=== PATIENT | male | born 1955 | race American Indian/Alaskan Native ===

== ENCOUNTER 2019-09-08 13:13 | Emergency (ER) | payer MEDICARE ==
[2019-09-08 13:24] VITALS: BP 121/73
[2019-09-08 16:04] LABS: Basophils % (Auto) 0.8 % (0.0-1.8); Eosinophils # (Auto) 0.2 K/mm3 (0.0-0.4); Eosinophils % (Auto) 3.2 % (0.0-4.3); Hematocrit 45.7 % (35.5-45.6); Hemoglobin 15.1 gm/dl (11.8-15.2); Lymphocytes # (Auto) 1.9 K/mm3 (1.2-5.4); Lymphocytes % (Auto) 32.8 % (13.4-35.0); Mean Corpuscular HGB Conc 33 % (32-34); Mean Corpuscular Volume 80 fl (84-94); Monocytes # (Auto) 0.5 K/mm3 (0.0-0.8); Platelet Count 289 K/mm3 (140-440); Red Blood Count 5.71 M/mm3 (3.65-5.03); Red Cell Distribution Width 14.3 % (13.2-15.2)
[2019-09-08] MEDS ORDERED: ALBUTEROL 2.5 MG/3 ML NEBU IH ONE (16:16)
[2019-09-08 16:23] LABS: BUN/Creatinine Ratio 14; Blood Urea Nitrogen 13 mg/dL (9-20); Calcium 9.3 mg/dL (8.4-10.2); Hemolysis Index 28
--- NOTE | 2019-09-08 16:39 | XRay Report ---
CHEST 2 VIEWS INDICATION / CLINICAL INFORMATION: cough copd. COMPARISON: None available. FINDINGS: SUPPORT DEVICES: None. HEART / MEDIASTINUM: No significant abnormality. LUNGS / PLEURA: Lungs are mildly hyperinflated. No superimposed airspace disease or interstitial opac ity. No pneumothorax. ADDITIONAL FINDINGS: No significant additional findings. IMPRESSION: 1. No acute findings. Signer Name: Jackson Devine MD Signed: 09/08/2019 4:35 PM Workstation Name: [id number]
--- NOTE | 2019-09-08 16:40 | Emergency Department Report ---
ED General Adult HPI - General Chief complaint: Dyspnea/Respdistress Stated complaint: COPD Time Seen by Provider: 09/08/19 16:14 Source: patient Mode of arrival: Ambulatory Limitations: No Limitations - History of Present Illness Initial comments: This 64-year-old -[place] male. Patient reports that history of COPD. States that he is recently moved to the area and did not bring his albuterol inhaler with him. Patient states that he's been feeling shortness of breath and a cough for 1 week. He states that he coughed so that sometimes his Right Chest Hurts. Patient Currently Denies Any Chest Pain. -: week(s) (1) Severity scale (0 -10): 5 Improves with: none Worsens with: none Associated Symptoms: cough. denies: diaphoresis, fever/chills, headaches, loss of appetite, malaise, nausea/vomiting - Related Data Previous Rx's Medication Instructions Recorded Last Taken Type Albuterol Sulfate [Proair 90 mcg IH Q4H PRN #1 aer.pw.bas 09/08/19 Unknown Rx Digihaler] predniSONE [Deltasone] 40 mg PO QDAY #6 tab 09/08/19 Unknown Rx Allergies Allergy/AdvReac Type Severity Reaction Status Date / Time No Known Allergies Allergy Unverified 09/08/19 14:12 ED Review of Systems ROS: Stated complaint: COPD Other details as noted in HPI Comment: All other systems reviewed and negative Constitutional: denies: chills, fever Respiratory: cough, shortness of breath, wheezing Cardiovascular: denies: chest pain, palpitations, dyspnea on exertion, orthopnea Gastrointestinal: denies: abdominal pain, nausea, vomiting Genitourinary: denies: urgency, dysuria Skin: denies: rash, lesions Neurological: denies: headache, weakness ED Past Medical Hx - Past Medical History Previous Medical History?: Yes Hx COPD: Yes - Surgical History Past Surgical History?: No - Social History Smoking Status: Current Every Day Smoker Substance Use Type: None - Medications Home Medications: Home Medications Medication Instructions Recorded Confirmed Last Taken Type Albuterol Sulfate [Proair 90 mcg IH Q4H PRN #1 aer.pw.bas 09/08/19 Unknown Rx Digihaler] predniSONE [Deltasone] 40 mg PO QDAY #6 tab 09/08/19 Unknown Rx ED Physical Exam - General Limitations: No Limitations General appearance: alert, in no apparent distress - Head Head exam: Present: atraumatic - Eye Eye exam: Present: normal appearance - ENT ENT exam: Present: normal exam - Neck Neck exam: Present: normal inspection - Respiratory Respiratory exam: Present: wheezes (few scattered wheezing). Absent: rales, rhonchi, stridor, accessory muscle use - GI/Abdominal GI/Abdominal exam: Present: soft - Extremities Exam Extremities exam: Present: normal inspection - Back Exam Back exam: Present: normal inspection - Neurological Exam Neurological exam: Present: alert, oriented X3 - Psychiatric Psychiatric exam: Present: normal affect - Skin Skin exam: Present: warm, intact ED Course Vital Signs 09/08/19 13:22 Temperature 98.1 F Pulse Rate 84 Respiratory 13 Rate Blood Pressure 121/73 [Left] O2 Sat by Pulse 99 Oximetry ED Medical Decision Making - Lab Data Result diagrams: 09/08/19 15:52 09/08/19 15:52 - Radiology Data Radiology results: report reviewed chest xray FINDINGS: SUPPORT DEVICES: None. HEART / MEDIASTINUM: No significant abnormality. LUNGS / PLEURA: Lungs are mildly hyperinflated. No superimposed airspace disease or interstitial opacity. No pneumothorax. ADDITIONAL FINDINGS: No significant additional findings. IMPRESSION: 1. No acute findings. - Medical Decision Making 64-year-old male with COPD exacerbation after one treatment of albuterol neb. Lungs were clear he was never in any respiratory distress. Chest x-ray with no acute findings. Patient's labs are within normal range. With the exception of the elevated glucose (221MG/DL)patientHAS history of diabetes. I did discuss with patient to short term use of prednisone that it could possibly increase his blood sugar Also instruct patient to follow-up with a local doctor he is given referral to [facility] contacted Dr. Estiven Liang. Pt well appearing in no distress safe to discharge home with out-patient follow up Critical care attestation.: If time is entered above; I have spent that time in minutes in the direct care of this critically ill patient, excluding procedure time. ED Disposition Clinical Impression: COPD exacerbation Disposition: DC-01 TO HOME OR SELFCARE Is pt being admited?: No Does the pt Need Aspirin: No Condition: Stable Instructions: Chronic Obstructive Pulmonary Disease (ED) Additional Instructions: Rest increased hydration, take medication as prescribed. Follow up with [facility]. Prescriptions: predniSONE [Deltasone] 40 mg PO QDAY #6 tab Albuterol Sulfate [Proair Digihaler] 90 mcg IH Q4H PRN #1 aer.pw.bas PRN Reason: Wheezing Referrals: FRANK ORDAZBAKERSFIELD MD [place] [Primary Care Provider] - 3-5 Days Time of Disposition: 17:26
== END 2019-09-08 17:38 | disposition home or self-care (01) ==
LOC: ED 13:13
DX: J44.1 Chronic obstructive pulmonary disease with (acute) exacerbation (principal); F17.200 Nicotine dependence, unspecified, uncomplicated
CPT/HCPCS: 36415; 71046; 80048; 85025; 99284